=== PATIENT | female | born 2000 | race Caucasian/White ===

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

== ENCOUNTER 2021-03-23 13:06 | Emergency (ER) | payer OTHER ==
[~2021-03-23] VITALS: Ht 149.9 cm; Wt 69.4 kg
[~2021-03-23 13:06] MED LIST changes: +ARIPIPRAZOLE10 MG PO; +ASHLYNA 0.15-01 EACH PO; +IRON18 MG PO; +NORCO 5-325 TA1 EACH PO
--- OUTSIDE RECORDS SUMMARY | 2021-03-23 13:08 | XMS ---
PreManage Notification: EDGAR TORRES Security Brick Off Bearer Events No recent Security Events currently on file CRITERIA MET - [facility] There are no care providers on record at this time. Care Guidelines exist for the following facilities: [facility] ( 12/30/2020 ) [facility] VIS[facility] COUNT (12 MO.) [facility] NOTE: Visits indicate total known visits. ED/UCC VISIT TRACKING (12 MO.) 03/23/2021 13:07 [facility] [place] TYPE: Emergency COMPLAINT: - R SIDED ABD PAIN, LOWER BACK PAIN INPATIENT VISIT TRACKING (12 MO.) No inpatient visits to display in this time frame [email or web address]
[2021-03-23] MEDS ORDERED: PRENATAL VITAM1 EAC5 PO (13:31)
[2021-03-23] MEDS ORDERED: CEPHALEXIN500 MG PO (16:05)
== END 2021-03-23 16:24 | disposition home or self-care (01) ==
LOC: ED 13:06
DX: N39.0 Urinary tract infection, site not specified (principal); Z87.891 Personal history of nicotine dependence; Z79.899 Other long term (current) drug therapy
CPT/HCPCS: 80053; 81001; 84703; 85025; 96374; 96375; 99284-25; J1885; J2405

== ENCOUNTER 2021-04-07 00:48 | Emergency (ER) | payer OTHER ==
[~2021-04-07] VITALS: Ht 149.9 cm; Wt 69.4 kg
[~2021-04-07 00:48] MED LIST changes: +PRENATAL VITAM1 EAC5 PO
--- OUTSIDE RECORDS SUMMARY | 2021-04-07 00:50 | XMS ---
PreManage Notification: EDGAR TORRES Security Svp Events No recent Security Events currently on file CRITERIA MET - [facility] - 2 Visits in 30 Days CARE PROVIDERS There are no care providers on record at this time. Care Guidelines exist for the following facilities: [facility] ( 12/30/2020 ) [place] VISIT COUNT (12 MO.) 2 [facility] TOTAL 2 NOTE: Visits indicate total known visits. ED/UCC VISIT TRACKING (12 MO.) 04/07/2021 00:49 [facility] [place] TYPE: Emergency COMPLAINT: - CRAMPING, VAGINAL BLEEDING 03/23/2021 13:07 [facility] [place] TYPE: Emergency COMPLAINT: - R SIDED ABD PAIN, LOWER BACK PAIN DIAGNOSES: - Unspecified abdominal pain - Other termite helper (current) drug therapy - Personal history of nicotine dependence - Urinary tract infection, site not specified INPATIENT VISIT TRACKING (12 MO.) No inpatient visits to display in this time frame [email or web address]
== END 2021-04-07 02:18 | disposition home or self-care (01) ==
LOC: ED 00:48
DX: N94.6 Dysmenorrhea, unspecified (principal); N80.9 Endometriosis, unspecified; Z87.891 Personal history of nicotine dependence; Z79.899 Other long term (current) drug therapy
CPT/HCPCS: 80053; 81001; 83690; 84703; 85025; 99284

== ENCOUNTER 2021-11-09 10:00 | Emergency (ER) | payer OTHER ==
[~2021-11-09] VITALS: Ht 149.9 cm; Wt 69.4 kg
[2021-11-09] MEDS ORDERED: NITROFURANTOIN100 M1 PO (10:19)
[2021-11-09] MEDS ORDERED: ONDANSETRON ODT8 MG PO (14:13)
== END 2021-11-09 14:40 | disposition home or self-care (01) ==
LOC: ED 10:00
DX: O99.612 Diseases of the digestive system complicating pregnancy, second trimester (principal); K29.00 Acute gastritis without bleeding; Z87.891 Personal history of nicotine dependence
CPT/HCPCS: 80048; 81001; 85025; 96374; 99284-25; J2405; J7030

== ENCOUNTER 2022-01-31 21:53 | Emergency (ER) | payer OTHER ==
[~2022-01-31] VITALS: Ht 149.9 cm; Wt 65.3 kg
[~2022-01-31 21:53] MED LIST changes: +NITROFURANTOIN100 M1 PO
[2022-01-31] MEDS ORDERED: DOK100 MG PO (22:18)
[2022-01-31] MEDS ORDERED: MAG-OXIDE400 MG PO (22:18)
== END 2022-01-31 23:15 | disposition home or self-care (01) ==
LOC: ED 21:53
DX: M79.89 Other specified soft tissue disorders (principal); O99.891 Other specified diseases and conditions complicating pregnancy; Z3A.35 35 weeks gestation of pregnancy; Z87.891 Personal history of nicotine dependence; Z79.899 Other long term (current) drug therapy
CPT/HCPCS: 93971; 99283-25

== ENCOUNTER 2024-05-02 09:12 | Day surgery (SDC) | payer OTHER ==
[2024-04-26 11:23] VITALS: BP 104/68
[~2024-05-02] VITALS: Ht 149.9 cm; Wt 43.2 kg
[~2024-05-02 09:12] MED LIST changes: +DOK100 MG PO; +FLONASE ALLERG9.9 ML; +IBLOOD GLUCOSE TEST STRIP 1 EA TEST VI PRN; +LACTATED RINGER'S 1,000 ML IV SCH; +LIDOCAINE HCL 1% 5 ML SDV INJ ONE; +MAG-OXIDE400 MG PO; +ZYRTEC10 M3 PO
[2024-05-02 10:10] VITALS: BP 100/54
--- NOTE | 2024-05-02 10:25 | NUR ---
NO ONE WAITING WITH PT. VASQUEZ TO FEEDER/FOLDER .
--- NOTE | 2024-05-02 11:37 | NUR ---
warm blankets on. update given. states ok with it.
--- NOTE | 2024-05-02 11:46 | NUR ---
up to br. warmer hose on per request. iv patent.
[2024-05-02] MEDS ORDERED: DEXAMETHASONE SOD PHOS 4 MG/ML VIAL ONE (12:18)
[2024-05-02] MEDS ORDERED: propofoL 200 MG/20 ML VIAL ONE (12:18)
[2024-05-02] MEDS ORDERED: fentaNYL citrate 100 MCG/2 ML VIAL ONE (12:18)
[2024-05-02] MEDS ORDERED: LIDOCAINE HCL 2% 5 ML SDV ONE (12:18)
[2024-05-02] MEDS ORDERED: ondansetron HCL 4 MG/2 ML VIAL ONE (12:18)
[2024-05-02] MEDS ORDERED: ACETAMINOPHEN 1,000 MG/100 ML VIAL ONE (12:18)
[2024-05-02] MEDS ORDERED: KETOROLAC TROMETHAMINE 30 MG/ML VIAL ONE (12:18)
[2024-05-02] MEDS ORDERED: MIDAZOLAM HCL 2 MG/2 ML VIAL ONE (12:18)
[2024-05-02] MEDS ORDERED: PROCHLORPERAZINE EDISYLATE 10 MG/2 ML VIAL IV PRN (13:45)
[2024-05-02] MEDS ORDERED: HYDROmorphone HCL 1 MG/ML SYR IV PRN (13:45)
[2024-05-02] MEDS ORDERED: ondansetron HCL 4 MG/2 ML VIAL IV PRN ×2 (13:45→14:30)
[2024-05-02] MEDS ORDERED: fentaNYL citrate 50 MCG/ML SDV IV PRN (13:45)
[2024-05-02] MEDS ORDERED: IBLOOD GLUCOSE TEST STRIP 1 EA TEST VI PRN (13:45)
[2024-05-02] MEDS ORDERED: droPERidol 5 MG/2 ML VIAL IV PRN (13:45)
[2024-05-02] MEDS ORDERED: NALOXONE HCL 0.4 MG SYR IV PRN ×2 (13:45→14:30)
--- NOTE | 2024-05-02 14:19 | NUR ---
05/02/24 Afsaneh9 Alda Kuhn 1414- PT ARRIVES TO PACU NONAROUSABLE TO STIMULI. RESP EVEN AND UNLABORED. OXYGEN SAT HIGH 90'S TO 100% ON 6L VIA MASK.
[2024-05-02] MEDS ORDERED: FAMOTIDINE 20 MG TAB PO PRN (14:30)
[2024-05-02] MEDS ORDERED: METOCLOPRAMIDE HCL 10 MG/2 ML SDV IV PRN (14:30)
[2024-05-02] MEDS ORDERED: OXYCODONE/APAP 5/325 TAB PO PRN (14:30)
[2024-05-02] MEDS ORDERED: MORPHINE SULFATE 10 MG/ML VIAL IV PRN (14:30)
[2024-05-02] MEDS ORDERED: MIDAZOLAM HCL 2 MG/2 ML VIAL IV PRN (15:00)
[2024-05-02 15:15] VITALS: BP 100/54
--- NOTE | 2024-05-02 15:15 | NUR ---
PT ARRIVES TO DS UNIT FROM PACU VIA STRETCHER. PT IS ALERT, BUT DISORIENTED AT THIS TIME. PT REORIENTED TO ROOM AT THIS TIME. PT IS SLIGHTLY TEARFUL, BUT VERBALLY CONSOLABLE. PT SITTING UP IN BED W/LIGHTS ON, SCD'S IN PLACE. APPLESAUCE AND ICE WATER PROVIDED, PT TOLERATING SMALL BITES WITHOUT DIFFICULTY. VS TAKEN. PT REPORTS NO PAIN OR NAUSEA AT THIS TIME. CALL LIGHT WITHIN REACH, PT VISIBLE FROM NURSES STATION.
--- NOTE | 2024-05-02 15:42 | NUR ---
PT MOTHER IN LAW UPDATED ON PT CONDITION AT THIS TIME AND PLAN OF CARE. PT MOTHER IN LAW STATES SHE IS BABYSITTING PT'S CHILD AT THIS TIME. LET PT MOTHER IN LAW KNOW SHE WILL BE CALLED AND UPDATED WHEN PT IS READY TO GO HOME.
--- NOTE | 2024-05-02 16:00 | NUR ---
THIS RN IN ROOM W/RUSLAN VANN AT THIS TIME. PT IS OCCASIONALLY EMOTIONAL AND BUT VERBALLY CONSOLABLE. PT REPORTS NO PAIN, NAUSEA, OR DIZZINESS AT THIS TIME. PT TOLERATING ORALS WITHOUT DIFFICULTY. PT STATES, "I JUST FEEL LIKE A SLUG". CALL LIGHT WITHIN REACH, PT VISIBLE FROM NURSES STATION. PT APPEARS COMFORTABLE AT THIS TIME.
--- NOTE | 2024-05-02 16:25 | NUR ---
OFELIA TORRES CALLED AND UPDATED ON PT CONDITION AT THIS TIME. OFELIA TORRES STATES HE WILL COME TO UNIT TO VISUALIZE PT. NO NEW ORDERS AT THIS TIME.
--- NOTE | 2024-05-02 16:30 | NUR ---
THIS RN AND HAKAN RN WITH PT FOR 2 RN FULL ASSIST TO RESTROOM FOR PT TO URINE VOID. SMALL AMOUNT OF BLOOD IN URINE, NO CLOTS PRESENT AT THIS TIME. PT STATES "I FEEL LIKE A NOODLE". PT BACK TO BED W/WARM BLANKETS IN PLACE. PT REPORTS NO PAIN OR NAUSEA AT THIS TIME. CALL LIGHT WITHIN REACH, PT VISIBLE FROM NURSES STATION AT THIS TIME.
[2024-05-02] MEDS ORDERED: SIMETHICONE 125 MG TABLET CHEWABLE PO SCH (17:00)
--- NOTE | 2024-05-02 17:00 | NUR ---
ANSWERED PT CALL LIGHT, PT REPORTS NEED TO URINE VOID AT THIS TIME. PT UP AND REPORTS NO DIZZINESS/NAUSEA AT THIS TIME. PT STANDBY ASSIST TO RESTROOM FOR URINE VOID. PT STATES SHE IS FEELING A LOT BETTER AT THIS TIME. PT BACK TO ROOM AND GETTING DRESSED AT THIS TIME. PT EDUCATED ABOUT MOVING SLOWLY, PT STATES VERBAL UNDERSTANDING AT THIS TIME. CALL LIGHT WITHIN REACH.
[2024-05-02 17:10] VITALS: BP 106/62
--- NOTE | 2024-05-02 17:15 | NUR ---
GILBERT MD ON UNIT TO VISUALIZE PT AT THIS TIME AND TALKING TO PT. PEDRO (PT MOTHER IN LAW) CALLED AT THIS TIME FOR RIDE HOME AND UPDATED ON PT POSITION. VERIFIED W/PEDRO THAT PT WILL HAVE RESPONSIBLE ADULT ACCOMPANYING HER AT HOME AND THAT PT'S CHILD WILL BE UNDER THE CARE OF HER (PEDRO), FOR THE NIGHT.
--- NOTE | 2024-05-02 17:25 | NUR ---
IN PT ROOM FOR DISCHARGE EDUCATION. PT STATED VERBAL UNDERSTANDING AND NO FURTHER QUESTIONS AT THIS TIME. PT OFF OF UNIT VIA WC TO PASSENGER SIDE OF MOTHER IN LAW'S VEHICLE. ALL BELONGINGS IN PT POSSESSION AT THIS TIME. PT REPORTS NO FURTHER NEEDS OR QUESTIONS.
--- NOTE | 2024-06-23 10:20 | OR ---
[address] [address] Signed DATE OF OPERATION: 05/02/2024 SURGEON: Calin Camargo DO PREOPERATIVE DIAGNOSES: 1. Malpositioned embedded IUD. 2. Desires IUD insertion. POSTOPERATIVE DIAGNOSES: 1. Malpositioned embedded IUD. 2. Desires IUD insertion. PROCEDURES PERFORMED: 1. Hysteroscopic removal of embedded IUD. 2. IUD insertion with hysteroscopic confirmation of correct position. ANESTHESIA: MAC. ESTIMATED BLOOD LOSS: 15 mL. FLUID DEFICIT: 295 mL. COMPLICATIONS: None. DRAINS: None. IMPLANTS: Mirena IUD LOT [id number] Expiration 10/2025 SPECIMEN: None. FINDINGS: Electronically Signed By: CALIN CAMARGO DO (JD) 06/23/24 1020 PATIENT NAME: EDGAR TORRES YAIR OPERATIVE REPORT DATE OF : 00 REPORT #: [id number] PHYSICIAN: CALIN CAMARGO DO (JD) PCP: KEREN URIOSTEGUI PA-C REPORT IS CONFIDENTIAL AND NOT TO BE RELEASED WITHOUT AUTHORIZATION [address] [address] Signed Normal external genitalia, vagina and cervix. Anteflexed uterus and uterine length 9 cm. On hysteroscopy malpositioned embedded IUD that was removed without difficulty and new Mirena IUD placed without difficulty and correct fundal position confirmed on hysteroscopy. INDICATIONS: Ms. Torres is a very pleasant 23-year-old G1, P1 female, who complained of issues with her Mirena IUD that was placed on May of 2022. Ultrasound demonstrated malpositioning, low in the endometrial canal and appearing to be embedded. IUD was attempted to be removed in the office that was noted to be embedded. The patient was consented for hysteroscopic removal of embedded/malpositioned IUD with reinsertion of new IUD. The patient reports severe anxiety and desires this to be performed in the OR. Risks, benefits, and alternatives were discussed in detail with the patient. The patient understands and wished to proceed with the procedure. DESCRIPTION OF PROCEDURE: The patient was taken the OR where a time-out was performed to confirm correct patient and correct procedure. MAC anesthesia was adequately established. The patient was prepped and draped in the dorsal lithotomy position with her feet in Yellofin stirrups. ICPs were on and running and no preoperative antibiotics or heparin was indicated. The bladder was drained. A weighted speculum was placed in the vagina and the anterior lip of the cervix was grasped with Allis clamp. The cervix was gently dilated using Hegar dilator to #7. An operative hysteroscope was then placed in the cervical os and advanced under direct visualization into the uterine cavity. Malpositioned IUD was noted to be embedded in the myometrium. This was grasped at the base with hysteroscopic graspers, advanced to the fundus, freeing the embedded IUD and then it was removed without difficulty through the cervix. A new Mirena IUD was selected and the uterine length was measured at 9 cm. The IUD was inserted without difficulty and strings were trimmed to 4 cm. The hysteroscope was then reinserted into the cervical os and advanced under direct visualization to the uterine cavity. The IUD was noted to be in the correct position at the uterine fundus. The hysteroscope was gently withdrawn ensuring to not disrupt the correct placement of the IUD. The patient was then taken to the PACU in good and stable condition. Sponge, needle and instrument counts were correct x2 at the end the procedure. Mirena IUD lot number [id number], expiration October 2025. . Calin Camargo DO Electronically Signed By: CALIN CAMARGO (JD), 06/23/24 1020 PATIENT NAME: EDGAR TORRES YAIR OPERATIVE REPORT DATE OF : 00 REPORT #: [id number] PHYSICIAN: CALIN CAMARGO DO (JD) PCP: KEREN URIOSTEGUI PA-C REPORT IS CONFIDENTIAL AND NOT TO BE RELEASED WITHOUT AUTHORIZATION [facility] [address] [place] [address] [place], [place] [address] Signed BRUNO/TAMARA /[id number] Copies: ~ Electronically Signed By: CALIN CAMARGO (JD), 06/23/24 1020 PATIENT NAME: EDGAR TORRES OPERATIVE REPORT DATE OF : 00 REPORT #: [id number] PHYSICIAN: CALIN CAMARGO (THALIA) PCP: KEREN URIOSTEGUI PA-C REPORT IS CONFIDENTIAL AND NOT TO BE RELEASED WITHOUT AUTHORIZATION
== END 2024-05-02 17:25 | disposition home or self-care (01) ==
LOC: OPS 09:12 → DS 09:12 → OPS 11:40
PROVIDERS: ATTEND Obstetrics & Gynecology
PROC: 0UPD8HZ Removal of Contraceptive Device from Uterus and Cervix, Via Natural or Artificial Opening Endoscopic (ICD-10-PCS; principal; 2024-05-02 11:40)
DX: T83.89XA Other specified complication of genitourinary prosthetic devices, implants and grafts, initial encounter (principal); Z88.8 Allergy status to other drugs, medicaments and biological substances
CPT/HCPCS: 00952; J0131; J1100; J1885; J2001; J2250; J2405; J2704; J3010; J7121

== ENCOUNTER 2024-10-12 09:00 | Day surgery (SDC) | payer OTHER ==
[2024-10-09 15:33] VITALS: BP 97/62
[~2024-10-12] VITALS: Ht 149.9 cm; Wt 43.2 kg
[~2024-10-12 09:00] MED LIST changes: +MIDAZOLAM HCL 5 MG/5 ML VIAL IV PRN; +NEURONTIN300 MG PO; +TOPAMAX25 MG PO; +fentaNYL citrate 100 MCG/2 ML VIAL IV PRN
[2024-10-12 09:13] VITALS: BP 100/58
[2024-10-12] MEDS ORDERED: OMEPRAZOLE40 MG PO (09:15)
[2024-10-12] MEDS ORDERED: propofoL 200 MG/20 ML VIAL ONE (09:43)
[2024-10-12] MEDS ORDERED: LIDOCAINE HCL 2% 5 ML SDV ONE (10:22)
--- NOTE | 2024-10-12 10:33 | NUR ---
10/12/24 1033 Giuliana Wu 1025-PT ARRIVES TO PACU RESTING ON LT SIDE, PT RESPONSIVE TO TACTILE STIMULI BUT FALLS BACK TO SLEEP EASILY, VSS ON 2L VIA NC, RR EVEN AND UNLABORED. 1030-PT TITRATED TO RA, VS REMAIN STABLE.
[2024-10-12 11:04] VITALS: BP 99/56
--- NOTE | 2024-10-13 08:13 | OR ---
[facility] [address] [place], [place] [address] Signed DATE OF OPERATION: 10/12/2024 SURGEON: Cali Lay MD PREOPERATIVE DIAGNOSES: 1. Mucus, posterior oropharynx. 2. Proximal esophageal dysphagia. 3. Epigastric abdominal pain. 4. Nausea. 5. Gastroesophageal reflux disease. 6. Chronic constipation. 7. Half sister who may have Crohn disease. POSTOPERATIVE DIAGNOSES: 1. Unremarkable upper endoscopy. 2. Minimal internal hemorrhoids. PROCEDURES: 1. Esophagogastroduodenoscopy with CLOtest and biopsies of the antrum. 2. Colonoscopy with cold biopsies of the terminal ileum, right colon, transverse colon, left colon, sigmoid colon, and rectum. ESTIMATED BLOOD LOSS: None. INDICATIONS: Edgar is a 23-year-old female asked to see me for both upper and lower endoscopy. She is 4 feet 11 inches tall. At one point, she was 168 pounds. She is now down to 96 pounds. She said her daughter was born two years ago. She has had a lot of trouble breast-feeding apparently. She has had a lot of trouble with abdominal pain as well. We see reference that she was in the emergency room back in 2019. She also had a diagnostic laparoscopy and cystoscopy in 2019. She is having complaints of mucus in her posterior oropharynx. She is describing proximal esophageal dysphagia. There was discussion of nausea and acid reflux and chronic constipation. She often has epigastric abdominal pain. She said she is bipolar and has some emotional instability. We know her mom and brother both have schizophrenia. Her half-sister may have Crohn disease. She had a maternal grandmother in 2023 looks like from possibly cancer. She has been working closely with her primary care provider. She has been through an enormous amount of evaluations by various physicians. She is waiting to see a lace burn out tender. She described endometriosis in the past. She has also had cystitis. She definitely has Electronically Signed By: CALI LAY MD 10/13/24 0813 PATIENT NAME: EDGAR TORRES OPERATIVE REPORT DATE OF : 00 REPORT #: [id number] PHYSICIAN: CALI LAY MD PCP: KEREN URIOSTEGUI PA-C REPORT IS CONFIDENTIAL AND NOT TO BE RELEASED WITHOUT AUTHORIZATION [facility] [address] [place], [place] [address] Signed TMJ as she can only open her mouth a small amount. She also uses marijuana on a daily basis to help with her anxiety. Her recent laboratory work has been negative. Recent CT scan of abdomen and pelvis has also been negative in March of this year at [facility]. In the office, I gave her pamphlets on both upper and lower endoscopy. We reviewed the nature of the two tests. There is risk including, but not limited to gas bloating, crampy abdominal pain, bleeding, perforation requiring surgery, and missed diagnosis. We also reviewed the written instructions for a bowel prep line by line. We also reviewed the need for monitored anesthesia care given her daily use of marijuana and her TMJ. She understands an adult person has to take her home afterwards. She had expressed understanding and wished to proceed. DESCRIPTION OF PROCEDURE: Edgar was taken into our endoscopy suite and placed in a supine semi-recumbent position. The posterior oropharynx was anesthetized with Hurricaine spray. A bite block was utilized for the case. She did have one of our nurses hold her hand as she was pretty anxious. She was given IV propofol per nurse director of recruitment. After this, the adult gastroscope was introduced and advanced down to the third portion of the duodenum without difficulty. The duodenum, pyloric channel, and entire stomach were unremarkable. We took a biopsy of the antrum for CLOtest as well as pathologic review. Upon retroflexion of the scope, we saw no additional pathology up around the cardia. The scope was drawn up through the area of the GE junction, which was compliant without stricture. There was very minimal if any disruption to the Z-line. Her Z-line was about 33 cm from her incisors. There was no Chandler mucosa. There was no distal esophagitis. The middle and upper esophagus were unremarkable. The posterior oropharynx was unremarkable as well. After this, the gas was suctioned out, the gastroscope removed. Edgar tolerated the upper endoscopy quite well. Edgar was then rotated into the left lateral decubitus position. She was maintained on IV propofol per nurse director of recruitment. A digital rectal exam was performed, this was unremarkable. There were no external hemorrhoids. She had good sphincter tone. There were no masses. The adult colonoscope was introduced and advanced all around into the cecum under direct visualization of camera without difficulty. Her prep was quite excellent. We turned the camera, went up into her terminal ilium about 10-12 cm. It looked quite healthy. We took two biopsies at the terminal ileum mainly because of the history of Crohn disease because of the possibility of Crohn disease in her half-sister. She has also had chronic constipation. The entire colon and rectum were unremarkable. We went and took biopsies randomly throughout the colon and rectum. Once in the rectum, the scope had been retroflexed. She does have minimal internal hemorrhoid columns. After this, the gas suctioned out, colonoscope removed. Edgar tolerated the procedure quite well. RECOMMENDATIONS: Electronically Signed By: CALI LAY MD 10/13/24 0813 PATIENT NAME: EDGAR TORRES OPERATIVE REPORT DATE OF : 00 REPORT #: [id number] PHYSICIAN: CALI LAY MD PCP: KEREN URIOSTEGUI PA-C REPORT IS CONFIDENTIAL AND NOT TO BE RELEASED WITHOUT AUTHORIZATION [facility] [address] [facility] [place] [address] Signed I will see Edgar back in my office in 7 to 14 days to review her results. MD MAE Camara/IRENEL /[id number] cc: Cali Lay MD Patient Chart [place] Physician Tree Planter Copies: CALI LAY MD ~ Electronically Signed By: CALI LAY MD 10/13/24 0813 PATIENT NAME: EDGAR TORRES OPERATIVE REPORT DATE OF : 00 REPORT #: [id number] PHYSICIAN: CALI LAY MD PCP: KEREN URIOSTEGUI PA-C REPORT IS CONFIDENTIAL AND NOT TO BE RELEASED WITHOUT AUTHORIZATION
--- NOTE | 2024-10-16 19:57 | PATH ---
[facility] [address] [place], [place] [address] Signed SPECIMEN(S): A DUODENAL BIOPSY SPECIMEN(S): B ANTRUM/PYLORUS BIOPSY SPECIMEN(S): C TERMINAL ILEUM BIOPSY SPECIMEN(S): D ASCENDING COLON BIOPSY SPECIMEN(S): E TRANSVERSE COLON BIOPSY SPECIMEN(S): F DESCENDING COLON BIOPSY SPECIMEN(S): G SIGMOID COLON BIOPSY SPECIMEN(S): H RECTUM SPECIMEN SOURCE: A. DUODENAL BIOPSY B. ANTRUM/PYLORUS BIOPSY C. TERMINAL ILEUM BIOPSY D. ASCENDING COLON BIOPSY E. TRANSVERSE COLON BIOPSY F. DESCENDING COLON BIOPSY G. SIGMOID COLON BIOPSY H. RECTUM CLINICAL HISTORY: Pre-op: GERD, excess mucus, chronic constipation and abdominal pain. Pos-op: Minimal internal hemorrhoids. FINAL PATHOLOGIC DIAGNOSIS: A. Duodenal biopsy: - Benign duodenal mucosa, negative for specific diagnostic abnormality. B. Antrum/pylorus biopsy: - Benign gastric mucosa with focal slight chronic inflammation. - Negative for evidence of Helicobacter organisms on routine HE-stained sections. C. Terminal ileum biopsy: - Benign small bowel mucosa, negative for specific diagnostic abnormality. D. Ascending colon biopsy: - Benign colonic mucosa, negative for specific diagnostic abnormality. E. Transverse colon biopsy: - Benign colonic mucosa, negative for specific diagnostic abnormality. F. Descending colon biopsy: - Benign colonic mucosa, negative for specific diagnostic abnormality. G. Sigmoid colon biopsy: - Benign colonic mucosa, negative for specific diagnostic abnormality. H. Rectum, biopsy: PATIENT NAME: EDGAR TORRES PATHOLOGY DATE OF : [birth year] REPORT #: [id number] PHYSICIAN: ROXANNE ANDREWS PCP: KEREN URIOSTEGUI PA-C REPORT IS CONFIDENTIAL AND NOT TO BE RELEASED WITHOUT AUTHORIZATION [facility] [address] [place], [place] [address] Signed - Benign colonic mucosa, negative for specific diagnostic abnormality. JVR:elmira MICROSCOPIC EXAMINATION: Histologic sections of all submitted blocks are examined by light microscopy. These findings, together with the gross examination, support the pathologic diagnosis. GROSS DESCRIPTION: A. The specimen, labeled and designated "Coiner, K, duodenal biopsy," is received in formalin and consists of one zavala soft tissue fragment, 0.4 cm. Entirely submitted in (A1). B. The specimen, labeled and designated "Coiner, K, antrum/pylorus biopsy," is received in formalin and consists of one zavala soft tissue fragment, 0.3 cm. Entirely submitted in (B1). C. The specimen, labeled and designated "Coiner, K, terminal ileum biopsy," is received in formalin and consists of two zavala soft tissue fragments, ranging from 0.3-0.4 cm. Entirely submitted in (C1). D. The specimen, labeled and designated "Coiner, K, ascending colon biopsy," is received in formalin and consists of one zavala soft tissue fragment, 0.3 cm. Entirely submitted in (D1). E. The specimen, labeled and designated "Coiner, K, transverse colon biopsy," is received in formalin and consists of one zavala soft tissue fragment, 0.3 cm. Entirely submitted in (E1). F. The specimen, labeled and designated "Coiner, K, descending colon biopsy," is received in formalin and consists of two zavala soft tissue fragments, ranging from 0.2-0.3 cm. Entirely submitted in (F1). G. The specimen, labeled and designated "Saurav Torres, sigmoid colon biopsy," is received in formalin and consists of one zavala soft tissue fragment, 0.3 cm. Entirely submitted in (G1). H. The specimen, labeled and designated "Saurav Torres, rectum biopsy," is received in formalin and consists of one zavala soft tissue fragment, 0.3 cm. Entirely submitted in (H1). AB (under the direct supervision of a pathologist) The Gross Description was prepared using a voice recognition system. The report was reviewed for accuracy; however, sound-alike word errors, addition and/or deletions may occur. If there is any question about this report, please contact Client Services. PERFORMING LABORATORY: PATIENT NAME: EDGAR TORRES PATHOLOGY DATE OF : 00 REPORT #: [id number] PHYSICIAN: ROXANNE ANDREWS PCP: KEREN URIOSTEGUI PA-C REPORT IS CONFIDENTIAL AND NOT TO BE RELEASED WITHOUT AUTHORIZATION [facility] [address] [place], [place] [address] Signed Technical component was performed by [facility], [address] [place] [id number] (CLIA# [id number]). Professional interpretation was performed by [facility], [address] [place] [address], [place] [address] (CLIA#: [id number]). Diagnostician: Ino Morris MD Pathologist Electronically Signed 10/16/2024 Copies: ~ PATIENT NAME: EDGAR TORRES YAIR PATHOLOGY DATE OF : 00 REPORT #: [id number] PHYSICIAN: ROXANNE PATHOLOGY PCP: KEREN URIOSTEGUI PA-C REPORT IS CONFIDENTIAL AND NOT TO BE RELEASED WITHOUT AUTHORIZATION
== END 2024-10-12 11:20 | disposition home or self-care (01) ==
LOC: DS 09:00
PROVIDERS: ATTEND Colon & Rectal Surgery
PROC: 0DBE8ZX Excision of Large Intestine, Via Natural or Artificial Opening Endoscopic, Diagnostic (ICD-10-PCS; principal; 2024-10-12 09:15)
PROC: 0DB68ZX Excision of Stomach, Via Natural or Artificial Opening Endoscopic, Diagnostic (ICD-10-PCS; 2024-10-12 09:15)
DX: K29.50 Unspecified chronic gastritis without bleeding (principal); K31.89 Other diseases of stomach and duodenum; K64.8 Other hemorrhoids; K21.9 Gastro-esophageal reflux disease without esophagitis; K59.00 Constipation, unspecified; J45.909 Unspecified asthma, uncomplicated; Z88.8 Allergy status to other drugs, medicaments and biological substances; Z79.899 Other long term (current) drug therapy
CPT/HCPCS: 00813; 36415; 87077; 88305; J2003; J2704; J7121

== ENCOUNTER 2025-03-19 15:06 | Emergency (ER) | payer OTHER ==
[~2025-03-19] VITALS: Ht 149.9 cm; Wt 45.3 kg
[~2025-03-19 15:06] MED LIST changes: -IBLOOD GLUCOSE TEST STRIP 1 EA TEST VI PRN; -LACTATED RINGER'S 1,000 ML IV SCH; -LIDOCAINE HCL 1% 5 ML SDV INJ ONE; -MIDAZOLAM HCL 5 MG/5 ML VIAL IV PRN; +OMEPRAZOLE40 MG PO; -fentaNYL citrate 100 MCG/2 ML VIAL IV PRN
[2025-03-19 17:26] LABS: BILIRUBIN, URINE NEGATIVE (negative); BLOOD/HGB, URINE NEGATIVE (Negative); KETONE, URINE NEGATIVE (Negative); LEUK ESTERASE, URINE NEGATIVE (negative); NITRITE, URINE NEGATIVE (negative)
[2025-03-19] MEDS ORDERED: ondansetron HCL 4 MG/2 ML VIAL IV ONE (17:30)
[2025-03-19 17:39] LABS: BASOPHILS 0.9 % (0-2); EOSINOPHILS 1.5 % (0-6); HEMATOCRIT 37.5 % (35.0-50.0); HEMOGLOBIN 13.1 g/dL (12.0-18.0); MCH 31.1 (27-36); MCV 88.8 fl (81-99); MONOCYTES 8.2 % (0-12); NEUTROPHILS 54.4 % (39-80); PLATELET COUNT 169 K/uL (140-440); RBC 4.22 M/ul (4.3-5.7); RDW 13.9 (10.5-15.0)
[2025-03-19 17:54] LABS: ALBUMIN 3.7 g/dL (3.4-5.0); ALBUMIN/GLOBULIN RATIO 1.12 (1.1-2.4); ANION GAP 9.7 (7-21); BILIRUBIN, TOTAL 0.3 mg/dL (0.2-1.0); BUN/CREATININE RATIO 14.81 (6.0-28.6); CALCIUM 8.5 mg/dL (8.5-10.1); CREATININE, SERUM 0.81 mg/dL (0.55-1.02); MAGNESIUM 1.9 mg/dL (1.8-2.4); POTASSIUM 3.7 mmol/L (3.5-5.1)
[2025-03-19] MEDS ORDERED: ONDANSETRON HCL4 MG PO (18:22)
[2025-03-19] MEDS ORDERED: LOPERAMIDE2 M1 PO (18:22)
[2025-03-19] MEDS ORDERED: DICYCLOMINE HCL20 MG PO (18:22)
[2025-03-19 18:25] VITALS: BP 105/72
== END 2025-03-19 18:32 | disposition home or self-care (01) ==
LOC: ED 15:06
PROVIDERS: Emergency Medicine
DX: R19.7 Diarrhea, unspecified (principal); R10.13 Epigastric pain; R11.2 Nausea with vomiting, unspecified; Z87.891 Personal history of nicotine dependence; Z88.8 Allergy status to other drugs, medicaments and biological substances; Z79.899 Other long term (current) drug therapy
CPT/HCPCS: 36415; 80053; 81003; 83690; 83735; 84703; 85025; 96374; 99284; J2405